=== PATIENT | female | born 1970 | race Caucasian/White ===

== ENCOUNTER 2019-10-11 09:03 | Emergency (ER) | payer MEDICARE, OTHER ==
[~2019-10-11] VITALS: Ht 121.9 cm; Wt 108.9 kg
[~2019-10-11 09:03] MED LIST: ALPR1TAB2 PO; AMIT10TA PO; AMLO1TAB PO; ASPI-655 PO; BENZ-14 PO; BUPR100T6 PO; CANA100T PO; CITA40TA12 PO; CITA40TA5 PO; CLON0.1T PO; CLOP75TA52 PO; CYCL5TAB10 PO; DOCU-123 PO; DULO60CA7 PO; GABA800T5 PO; HYDR-3101 PO; HYDR-3105 PO; INSU100I19 SQ; INSU100I31 SQ; INSU100V13 SQ; LEVO175T5 PO; LEVO750T25 PO; LEVO75TA6 PO; LIRA0.6P2 SQ; LUBI8CAP4 PO; MELO15TA6 PO; OLME1TAB25 PO; PREG75CA PO; ROPI5TAB PO; SULF1TAB24 PO; TRAZADONE PO
[2019-10-11 09:09] VITALS: BP 120/67
[2019-10-11 09:21] VITALS: BP 120/67
--- NOTE | 2019-10-11 09:25 | NUR ---
RAD PT TO RADIOLOGY VIA STRETCHER.
--- NOTE | 2019-10-11 09:58 | ER.PDOC ---
General Chief Complaint: Extremities Stated Complaint: FALL Time seen by MD: 09:05 Source: patient Exam Limitations: no limitations History of Present Illness Initial Comments Pt fell forward out of motorized wheelchair when it hit an obstruction in the house and stopped suddenly. C/o R arm and neck pain Occurred: just prior to arrival Where: home Severity: moderate Injuries/Pain Location: neck, upper extremity Context: Other Loss of Consciousness: No Loss of Consciousness Modifying Factors: improves with immobilization; worse with jarring, worse with movement; improves with pain medication Associated Symptoms: denies symptoms Allergies: Coded Allergies: cefazolin (Verified Allergy, Severe, Anaphylaxis Shock, 07/04/18) cefazolin sodium (Verified Allergy, Severe, LUNGS COLLAPSED AND HEART STOPPED, 12/21/16) MEDS Active Scripts Levofloxacin (LEVAQUIN) 750 Mg Tablet, 500 MG PO DAILY for 5 Days Prov:ARYA SALTER MD 01/02/17 Reported Medications Docusate Sodium (COLACE) 100 Mg Capsule, 1 CAP PO BID, #30 CAP 12/29/16 Lubiprostone (AMITIZA) 8 Mcg Capsule, 1 CAP PO BID, #60 CAP 5 Refills 12/29/16 Clopidogrel Bisulfate (PLAVIX) 75 Mg Tablet, 1 TAB PO DAILY, #30 TAB 4 Refills 12/27/16 Aspirin (ASPIRIN EC) 81 Mg Tablet.dr, 1 TAB PO DAILY, #30 TAB 4 Refills 12/27/16 Meloxicam (MOBIC) 15 Mg Tablet, 1 TAB PO DAILY, #30 TAB 1 Refill 12/21/16 Levothyroxine Sodium (LEVOTHYROXINE SODIUM) 175 Mcg Tablet, 1 TAB PO DAILY, #30 TAB 5 Refills 12/21/16 Hydrocodone Bit/Acetaminophen (NORCO 10-325) 1 Each Tablet, 1 TAB PO QID, #120 TAB 12/21/16 Duloxetine Hcl (CYMBALTA) 60 Mg Capsule.dr, 1 CAP PO DAILY, #90 CAP 3 Refills 12/21/16 Pregabalin (LYRICA) 75 Mg Capsule, 1 CAP PO BID, #60 CAP 1 Refill 12/21/16 Canagliflozin (Invokana) 100 Mg Tablet, 100 MG PO DAILY, TABLET 12/21/16 Insulin Degludec (Tresiba Flextouch U-100) 100 Unit/Ml (3 Ml) Insuln.pen, 44 UNIT SQ HS 12/21/16 Liraglutide (VICTOZA 3-JORDON) 0.6 Mg/0.1 Ml Pen.injctr, 1.2 MG SQ DAILY 12/21/16 Ropinirole Hcl (REQUIP) 5 Mg Tablet, 20 MG PO HS 05/08/13 Cyclobenzaprine Hcl (FLEXERIL) 5 Mg Tablet, 10 MG PO TID 05/08/13 Alprazolam (XANAX) 1 Mg Tablet, 1 MG PO TID 05/08/13 Olmesartan/Hydrochlorothiazide (BENICAR HCT 40-25 MG TABLET) 1 Each Tablet, 1 EACH PO DAILY 05/08/13 Past Medical History Medical History: cancer, diabetes, hypertension, thyroid disease Surgical History: cholecystectomy, , gastric bypass Social History Alcohol Use: none Drug Use: none Review of Systems Constitutional: no symptoms reported Eyes: no symptoms reported Ears, Nose, Mouth, Throat: no symptoms reported Respiratory: no symptoms reported Cardiovascular: no symptoms reported Gastrointestinal: no symptoms reported Genitourinary: no symptoms reported Musculoskeletal: see HPI, other (RUE, neck pain) Skin: no symptoms reported Psychiatric/Neurological: no symptoms reported Physical Exam General Appearance: WD/WN, Moderate Distress Head: Other (Small abrasion R forehead) Eyes: bilateral eye normal inspection Ears, Nose, Mouth, Throat: Hearing Grossly Normal, No Evidence of ENT Injury, No Dental Injury Neck: Normal Alignment, Distracting Injury, Paraspinous Muscle Tender (R) Cardiovascular/Respiratory: Regular Rate, Rhythm, No M/R/G, Normal Peripheral Pulses, No JVD, Normal Breath Sounds, No Respiratory Distress Gastrointestinal: Normal Bowel Sounds, No Organomegaly, No Pulsatile Mass, Non Tender, Soft Genital/Rectal: Normal Genital Exam Back: Normal Inspection, No CVA Tenderness, No Vertebral Tenderness Extremities: No Pedal Edema, Bony-Point Tenderness (Prox R humerus), Pain With Movement, Tenderness Neurologic/Psychiatric: prefitter doors II-XII NML as Tested, No Motor/Sensory Deficits, Alert, Normal Mood/Affect, Oriented x 3 Skin: Normal Color, Warm/Dry Cheryl Coma Score Best Eye Response: (4) Open Spontaneously Best Verbal Response: (5) Oriented Best Motor Response: (6) Obeys Commands Results/Orders Results/Orders Orders - JOHANNA EPREZ MD Xr Humerus Rt (10/11/19 09:10) Xr Cspine 2-3v (10/11/19 09:10) Vital Signs Date Time Temp Pulse Resp B/P (MAP) Pulse Ox O2 Delivery O2 Flow Rate FiO2 10/11/19 09:21 97.8 82 10 120/67 (84) 92 Nasal Canula 10/11/19 09:21 97.8 82 10 120/67 (84) 92 Nasal Canula 2.00 10/11/19 09:09 97.8 82 12 92 10/11/19 09:09 97.8 82 10 Departure Time of Disposition: 10:12 Disposition: 01 HOME, SELF-CARE Impression: Primary Impression: Fracture, humerus, great tuberosity Condition: Stable Referrals: PCP,UNKNOWN (PCP) PRIMARY CARE PROVIDER Additional Instructions: Take hydrocodone as prescribed. Wear sling for comfort. Refer Dr. Estrella. Duration or Time Spent with Pa: 15 Problem Qualifiers Primary Impression: Fracture, humerus, great tuberosity Encounter type: initial encounter Fracture type: closed Fracture alignment: nondisplaced Laterality: right Qualified Codes: S42.254A - Nondisplaced fracture of greater tuberosity of right humerus, initial encounter for closed fracture JOHANNA PEREZ MD Oct 11, 2019 09:58
--- NOTE | 2019-10-11 10:00 | DIREP ---
PROCEDURE:XR SPINE CERVICAL 2 OR 3 VIEWS COMPARISON:[facility], CR, XRAY HUMERUS MIN 2 VWS-RT, 10/11/2019, 09:18 AM. INDICATIONS:Fall from wheelchair, neck pain TECHNIQUE:AP, lateral, swimmer's, and dens views of the cervical spine are provided. FINDINGS: ALIGNMENT:The cervical spine is visualized through the C6-7 level on the lateral and swimmer's views. The cervicothoracic junction is obscured by the patient's shoulders. No subluxation at the visualized cervical levels. VERTEBRAE:No fracture or compression abnormality of the visualized cervical levels. Small ventral osteophytes at C4-5 and C5-6. DISK SPACES:Mild disc space narrowing at C4-5 and C5-6. CERVICAL RIBS:None. OTHER:No prevertebral soft tissue swelling. CONCLUSION: 1. No acute abnormality of the visualized cervical levels. The cervicothoracic junction is not well visualized. If there is clinical suspicion for injury at the cervicothoracic junction, noncontrast CT of the cervical spine could be performed. 2. Mild spondylosis at C4-5 and C5-6. Dictated by: Jasbir Cates MD on 10/11/2019 at 09:56 AM
--- NOTE | 2019-10-11 10:02 | DIREP ---
PROCEDURE:XRAY HUMERUS MIN 2 VWS-RT COMPARISON:[facility], , XRAY SPINE CERVICAL 2-3VW, 10/11/2019, 09:18 AM. INDICATIONS:Fall from wheelchair, R prox humerus pain FINDINGS: BONES:Nondisplaced vertical fracture through the greater tuberosity of the right proximal humerus. No additional fracture. JOINTS:No dislocation. Moderate acromioclavicular arthrosis. Mild glenohumeral arthrosis. SOFT TISSUES:Normal. OTHER:Visualized portions of the right lung are clear, given low lung volumes. CONCLUSION: 1. Acute, nondisplaced, vertical fracture through the greater tuberosity of the right proximal humerus. No additional fracture. 2. Moderate acromioclavicular arthrosis and mild glenohumeral arthrosis. Dictated by: Jasbir Cates MD on 10/11/2019 at 09:59 AM
[2019-10-11] MEDS ORDERED: NORCO 10MG PO STA (10:10)
[2019-10-11] MEDS ORDERED: NORCO 10MG PO ONE (10:14)
[2019-10-11 10:25] VITALS: BP 104/63
== END 2019-10-11 10:25 | disposition home or self-care (01) ==
LOC: ER 09:03 → EDBD 09:03 → ER 10:25
DX: S42.254A Nondisplaced fracture of greater tuberosity of right humerus, initial encounter for closed fracture (principal); S00.81XA Abrasion of other part of head, initial encounter; I10 Essential (primary) hypertension; E11.9 Type 2 diabetes mellitus without complications; E07.9 Disorder of thyroid, unspecified; Z79.1 Long term (current) use of non-steroidal anti-inflammatories (NSAID); Z79.4 Long term (current) use of insulin; Z79.82 Long term (current) use of aspirin; Z79.899 Other long term (current) drug therapy; Z88.1 Allergy status to other antibiotic agents; Z90.49 Acquired absence of other specified parts of digestive tract; Z98.84 Bariatric surgery status; V27.4XXA Motorcycle driver injured in collision with fixed or stationary object in traffic accident, initial encounter; Y93.89 Activity, other specified; Y92.098 Other place in other non-institutional residence as the place of occurrence of the external cause; Y99.8 Other external cause status
CPT/HCPCS: 72040; 99284; 73060-RT

== ENCOUNTER → 2020-03-10 | Outpatient (CLI) | payer MEDICARE, OTHER ==
[~2020-03-10] MED LIST changes: -ASPI-655 PO; +ASPI-929 PO
== END | disposition home or self-care (01) ==
LOC: NPLAB 14:03
PROVIDERS: ATTEND Internal Medicine
DX: E11.40 Type 2 diabetes mellitus with diabetic neuropathy, unspecified (principal); T87.44 Infection of amputation stump, left lower extremity
CPT/HCPCS: 87070; 87075; 87077; 87186

== ENCOUNTER 2020-03-19 16:48 | Emergency (ER) | payer OTHER, MEDICARE ==
[~2020-03-19] VITALS: Ht 132.1 cm; Wt 108.9 kg
--- NOTE | 2020-03-19 17:07 | NUR ---
ARRIVAL PT ARRIVED TO ED WITH C/O NEEDING WOUND VAC CHANGED. PT REPORTS SHE WAS SUPPOSED TO BE SEEN BY HOME HEALTH TODAY AFTER BEING DISCHARGED FROM [facility] AFTER A STUMP REVISION. HOME HEALTH DENIED COMING D/T IT BEING WORKMANS COMP CASE. BEDSIDE MONITORS APPLIEDL VITAL SIGNS STABLE. PT SITTING IN WHEELCHAIR.
[2020-03-19 17:24] VITALS: BP 117/62
[2020-03-19] MEDS ORDERED: DILAUDID ONE (17:33)
[2020-03-19] MEDS: DILAUDID IV STA (17:41)
--- NOTE | 2020-03-19 17:43 | ER.PDOC ---
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 She came in for wound dressing. She is also having phantom pain. Severity: moderate Associated Symptoms: denies symptoms Allergies: Coded Allergies: cefazolin (Verified Allergy, Severe, Anaphylaxis Shock, 07/04/18) cefazolin sodium (Verified Allergy, Severe, LUNGS COLLAPSED AND HEART STOPPED, 12/21/16) Home Meds Active Scripts Levofloxacin (LEVAQUIN) 750 Mg Tablet, 500 MG PO DAILY for 5 Days Prov:ARYA SALTER MD 01/02/17 Reported Medications Docusate Sodium (COLACE) 100 Mg Capsule, 1 CAP PO BID, #30 CAP 12/29/16 Lubiprostone (AMITIZA) 8 Mcg Capsule, 1 CAP PO BID, #60 CAP 5 Refills 12/29/16 Clopidogrel Bisulfate (PLAVIX) 75 Mg Tablet, 1 TAB PO DAILY, #30 TAB 4 Refills 12/27/16 Aspirin (ASPIRIN EC) 81 Mg Tablet.dr, 1 TAB PO DAILY, #30 TAB 4 Refills 12/27/16 Meloxicam (MOBIC) 15 Mg Tablet, 1 TAB PO DAILY, #30 TAB 1 Refill 12/21/16 Levothyroxine Sodium (LEVOTHYROXINE SODIUM) 175 Mcg Tablet, 1 TAB PO DAILY, #30 TAB 5 Refills 12/21/16 Hydrocodone Bit/Acetaminophen (NORCO 10-325) 1 Each Tablet, 1 TAB PO QID, #120 TAB 12/21/16 Duloxetine Hcl (CYMBALTA) 60 Mg Capsule.dr, 1 CAP PO DAILY, #90 CAP 3 Refills 12/21/16 Pregabalin (LYRICA) 75 Mg Capsule, 1 CAP PO BID, #60 CAP 1 Refill 12/21/16 Canagliflozin (Invokana) 100 Mg Tablet, 100 MG PO DAILY, TABLET 12/21/16 Insulin Degludec (Tresiba Flextouch U-100) 100 Unit/Ml (3 Ml) Insuln.pen, 44 UNIT SQ HS 12/21/16 Liraglutide (VICTOZA 3-JORDON) 0.6 Mg/0.1 Ml Pen.injctr, 1.2 MG SQ DAILY 12/21/16 Ropinirole Hcl (REQUIP) 5 Mg Tablet, 20 MG PO HS 05/08/13 Cyclobenzaprine Hcl (FLEXERIL) 5 Mg Tablet, 10 MG PO TID 05/08/13 Alprazolam (XANAX) 1 Mg Tablet, 1 MG PO TID 05/08/13 Olmesartan/Hydrochlorothiazide (BENICAR HCT 40-25 MG TABLET) 1 Each Tablet, 1 EACH PO DAILY 05/08/13 Past Medical History Medical History: hypertension, other Surgical History: cholecystectomy, other Social History Alcohol Use: none Drug Use: none Review of Systems Constitutional: no symptoms reported EENTM: no symptoms reported Respiratory: no symptoms reported Cardiovascular: no symptoms reported Gastrointestinal: no symptoms reported Musculoskeletal: see HPI Skin: see HPI All Other Systems: Reviewed and Negative Physical Exam General Appearance: No Apparent Distress, WD/WN, Obese Neck: Non-Tender, Full Range of Motion, Supple, Normal Inspection Respiratory: chest non-tender, lungs clear, normal breath sounds, no respiratory distress, no accessory muscle use CVS: reg rate & rhythm, no murmur, no gallop, pulses nml, nml capillary refill Gastrointestinal: Normal Bowel Sounds, No Organomegaly, No Pulsatile Mass, Non Tender Back: Normal Inspection Extremities: Other (left AKA with a wound vac aatached to the stump.) Neurologic/Psychiatric: wirer helper II-XII NML as Tested, No Motor/Sensory Deficits, Alert, Normal Mood/Affect Skin: Normal Color, Other (No sorrounding redness or erytherma of the wound.) Results/Orders Results/Orders Orders - SURESH BELCHER MD Hydromorphone Hcl (Dilaudid) (03/19/20 17:35) Hydromorphone Hcl (Dilaudid) (03/19/20 17:33) Vital Signs Date Time Temp Pulse Resp B/P (MAP) Pulse Ox O2 Delivery O2 Flow Rate FiO2 03/19/20 17:24 99.6 112 18 03/19/20 17:24 99.6 112 18 117/62 (80) 98 Room Air 03/19/20 17:24 99.6 112 18 98 Administered Medications Medications (Trade) Dose Ordered Sig/Lit Route PRN Reason Start Time Stop Time Status Last Admin Dose Admin Hydromorphone HCl (Dilaudid) 2 mg STAT STAT IV 03/19/20 17:35 03/19/20 17:36 DC 03/19/20 17:41 2 MG Progress Progress Wound vac changed in the ED by hot dip plating supervisor. Departure Time of Disposition: 19:21 Disposition: 01 HOME, SELF-CARE Impression: Primary Impression: Encounter for management of wound VAC Additional Impression: Phantom limb pain Condition: Stable Referrals: PCP,UNKNOWN (PCP) PRIMARY CARE PROVIDER Additional Instructions: F/U with your Surgeon as needed F/U with home health to continue wound Vac management. Return to ED if any concerns Duration or Time Spent with Pa: 30 min Problem Qualifiers SURESH BELCHER MD Mar 19, 2020 17:43
--- NOTE | 2020-03-19 18:55 | NUR ---
WOUND VAC ASSESSMENT/DRESSING CHANGE WOUND VAC DRESSING REMOVED. ATTEMPTED TO REMOVE BLACK FOAM, FOAM HAS BEEN STAPLED AND SUTURED IN PLACE, PATIENT STATES THAT HER SURGEON PLACED IT IN THE OR. EXPLAINED THAT I CANNOT REMOVE FOAM DUE TO THE EMIL AND SUTURES IN PLACE, WITH NO CLEAR ORDERS FOR REMOVAL, WOUND CLEANSED BEST POSSIBLE, CLEAN DRESSING, TUBING, CANISTER PLACED. PATIENT AND PATIENT CAREGIVER VERBALIZE UNDERSTANDING OF HOME HEALTH CARE/WOUND CARE SUNDAY, EXPLAINED THAT IF SHE IS NOT ABLE TO GET IN WITH HOME HEALTH SUNDAY SHE NEEDS TO RETURN TO ER NO LATER THAN NOON SO WE CAN GET INTO TOUCH WITH HER SURGEON FOR MORE DETAILED INSTRUCTIONS FOR WOUND CARE, DISCHARGE HOME INSTRUCTIONS.
== END 2020-03-19 19:20 | disposition home or self-care (01) ==
LOC: ER 16:48
DX: G54.6 Phantom limb syndrome with pain (principal); I10 Essential (primary) hypertension; Z48.00 Encounter for change or removal of nonsurgical wound dressing; Z79.1 Long term (current) use of non-steroidal anti-inflammatories (NSAID); Z79.4 Long term (current) use of insulin; Z79.82 Long term (current) use of aspirin; Z79.84 Long term (current) use of oral hypoglycemic drugs; Z79.899 Other long term (current) drug therapy; Z88.1 Allergy status to other antibiotic agents; Z90.49 Acquired absence of other specified parts of digestive tract
CPT/HCPCS: 96374; 99283; J1170

== ENCOUNTER → 2020-04-26 | Outpatient (CLI) | payer MEDICARE, OTHER ==
[2020-04-26 15:14] LABS: BASOPHIL # 0.1 10^3/uL (0.0-0.1); BASOPHIL % 0.9 % (0.0-0.2); EOSINOPHIL # 0.2 10^3/uL (0.0-0.2); EOSINOPHIL % 3.3 % (0.0-5.0); LYMPHOCYTES # 1.32 10^3/uL1 (1.0-4.8); MEAN CORP HGB 26.3 pg (26-34); MONOCYTES # 0.5 10^3/uL (0.3-0.8); MONOCYTES % 8.6 % (5.0-12.0); NEUTROPHIL # 3.5 10^3/uL (1.8-7.7); PLATELET COUNT 222 10^3/uL (150-400); RED CELL DISTRIBUTION WIDTH 18.8 % (11.5-14.5)
[2020-04-26 15:29] LABS: CALCIUM 7.7 mg/dL (8.4-10.5); CARBON DIOXIDE 32.6 mmol/L (20.0-32)
== END | disposition home or self-care (01) ==
LOC: NPLAB 11:50
PROVIDERS: ATTEND Orthopaedic Surgery
DX: T81.42XA Infection following a procedure, deep incisional surgical site, initial encounter (principal); I10 Essential (primary) hypertension; B95.61 Methicillin susceptible Staphylococcus aureus infection as the cause of diseases classified elsewhere; Z89.612 Acquired absence of left leg above knee
CPT/HCPCS: 80053; 82550; 85025; 85651; 86140

== ENCOUNTER → 2020-09-21 | Outpatient (CLI) | payer MEDICARE, OTHER ==
[2020-09-21 17:46] LABS: CALCIUM 7.6 mg/dL (8.4-10.5); CARBON DIOXIDE 26.1 mmol/L (20.0-32)
== END | disposition home or self-care (01) ==
LOC: LAB 17:08
PROVIDERS: ATTEND Internal Medicine
DX: R40.0 Somnolence (principal); I10 Essential (primary) hypertension; Z79.899 Other long term (current) drug therapy
CPT/HCPCS: 36415; 80053; 80307; 80346

== ENCOUNTER → 2021-01-19 | Outpatient (CLI) | payer MEDICARE, MEDICAID ==
[2021-01-19 14:36] LABS: BILIRUBIN,URINE NEGATIVE (NEGATIVE); UA COLOR YELLOW
[2021-01-19 14:37] LABS: UROBILINOGEN,URINE 0.2 E.U./dL (0.2)
== END | disposition home or self-care (01) ==
LOC: NPLAB 14:16
PROVIDERS: ATTEND Internal Medicine
DX: R30.0 Dysuria (principal)
CPT/HCPCS: 81001; 87086

== ENCOUNTER → 2021-09-05 | Outpatient (CLI) | payer MEDICARE, OTHER ==
[~2021-09-05] MED LIST changes: -CITA40TA5 PO; +CITA40TA6 PO; -DULO60CA7 PO; +DULO60CA8 PO
--- NOTE | 2021-09-06 11:48 | DIREP ---
PROCEDURE:BONE DENSITY PERIPHERAL INDICATIONS:OSTEOPOROSIS COMPARISON:None. FINDINGS: Femur Proximal RIGHT femur bone mineral density (BMD) (g/cm2): 0.417 T-score : -4.7 Proximal LEFT femur bone mineral density (BMD) (g/cm2): 0.331T-score: The 5.4 Lumbar Lumbar bone mineral density (BMD) (g/cm2): 1.047T-score : -1.2 Imaging- No significant findings CONCLUSION: 1. Osteoporosis of the bilateral hips. Osteopenia of the lumbar spine 2. Based on the [place] FRAX study, the patient's 10-year probability of a major osteoporotic fracture (clinical spine, forearm, hip or shoulder) is 64.8 %, and the 10-year probability of a hip fracture is 58.9 %. SUGGESTED RECOMMENDATIONS: Normal & Osteopenia:Consideration should be given to use of calcium supplementation, daily multiple vitamins and adequate exercise, as preventive measures against osteoporosis, if clinically indicated. Osteoporosis & Severe Osteoporosis:In addition to the above, consideration should be given to medical therapy against osteoporosis, if clinically indicated. Dictated by: Ivone Bruner M.D. on 09/06/2021 at 10:45 AM Read in [place]
== END | disposition home or self-care (01) ==
LOC: BD 14:41
PROVIDERS: ATTEND Internal Medicine
DX: M81.8 Other osteoporosis without current pathological fracture (principal); M85.88 Other specified disorders of bone density and structure, other site; Z13.820 Encounter for screening for osteoporosis
CPT/HCPCS: 77080

== ENCOUNTER → 2022-05-09 | Outpatient (CLI) | payer MEDICARE, MEDICAID ==
[~2022-05-09] MED LIST changes: -AMLO1TAB PO; +LEXISCAN IV ONE; +OLME-36 PO; -OLME1TAB25 PO; +[UNRECOGNIZED DRUG - CODE] PO
--- NOTE | 2022-05-10 00:13 | PCM.ECHO ---
APPROVED REPORT EXAM: Comprehensive 2D, Doppler, and color-flow Echocardiogram. Patient Location: OUT-PATIENT Indications Dizziness and Vertigo Hypertension/HDD Chest Pain Palpitations 2D Dimensions LVOT Diameter 2.20 (1.8-2.4cm) LVEF(%) 54.80 (>50%) M-Mode Dimensions RVDd 0.50 (2.1-3.2cm) Left Atrium(MM) 3.85 (2.5-4.0cm) IVSd 0.85 (0.7-1.1cm) Aortic Root 3.50 (2.2-3.7cm) LVDd 8.65 (4.0-5.6cm) Aortic Cusp Exc 2.00 (1.5-2.0cm) PWd 0.80 (0.7-1.1cm) MV EPSS 0.39 (<0.5cm) IVSs 1.25 cm FS (%) 20.85 % LVDs 6.80 (2.0-3.8cm) ESV(Teich) 243.06 ml PWs 1.40 cm LVEF(%) 40.75 (>50%) Volumes Biplane 2D LV Volumes Biplane 2D LA Volumes LVEDv A4C 155.28 mL LA ESV Index LVESv A4C 70.18 mL Aortic Valve AoV Peak Rafy. 1.35 m/s AoV VTI 27.05 cm AO Peak GR. 7.30 mmHg AO Mean GR. 3.95 mmHg LVOT VTI 14.02 cm LVOT Peak Rafy. 0.57 m/s MARQUEZ(VTI)/BSA 1.97 cm2/m2 MARQUEZ (VTI) 1.97 cm2 Mitral Valve MV E Velocity 0.80m/s MR Peak Gr. 19.70mmHg MV A Velocity 1.05m/s TDI Lateral E' P. V 0.06m/s Medial E' P. V 0.06m/s Pulmonary Valve PV Peak Velocity 0.55m/s PV Peak Grad. 1.30mmHg RVOT VTI 14.40cm Tricuspid Valve TR P. Velocity 1.55m/s RAP ESTIMATE 10.00mmHg TR Peak Gr. 9.68mmHg RVSP 19.68mmHg LEFT VENTRICLE The left ventricle is normal size. Left ventricular systolic function is mildly decreased. There is normal left ventricular wall thickness. Regional wall motion abnormalities are noted. Severe diastolic dysfunction is present (restrictive filling). There is no ventricular septal defect visualized. No left ventricle thrombus noted on this study. LVEF is 45%. RIGHT VENTRICLE The right ventricle is normal size. Right ventricular systolic function is mildly reduced. There is normal right ventricular wall thickness. ATRIA The left atrium size is normal. The right atrium size is normal. The interatrial septum is intact with no evidence for an atrial septal defect. AORTIC VALVE The aortic valve is normal in structure. There is no aortic valvular stenosis. No aortic regurgitation is present. There is no aortic valvular vegetation. MITRAL VALVE The mitral valve is normal in structure. There is no mitral valve stenosis. Mild mitral regurgitation. There is no evidence of mitral valve vegetations. TRICUSPID VALVE The tricuspid valve is normal in structure. There is no tricuspid valve stenosis. Mild tricuspid regurgitation. There is no tricuspid valve vegetations. PULMONIC VALVE Pulmonic valve is not well visualized. There is no pulmonic valvular stenosis. Mild pulmonic regurgitation. GREAT VESSELS The aortic root is normal in size. Pulmonary artery is not well visualized. Aortic arch is not well visualized. IVC is not well visualized. PERICARDIUM There is no pericardial effusion. Other Information Study Quality: Fair <Conclusion> Left ventricular systolic function is mildly decreased. LVEF is 45%. Regional wall motion abnormalities are noted. Severe diastolic dysfunction is present (restrictive filling). Mild mitral regurgitation. Mild tricuspid regurgitation. Mild pulmonic regurgitation. Electronically signed by : ANN-MARIE YEH. 05/10/2022 00:13:06
--- NOTE | 2022-05-10 01:45 | STRESS ---
DATE OF SERVICE: 05/09/2022 DICTATOR NAME: ANN-MARIE YEH CARDIAC STRESS TEST INDICATION: Chest pain. FINDINGS: Baseline EKG shows normal sinus rhythm with poor R-wave progression, likely normal variant. Stress EKG shows normal sinus rhythm, unchanged from baseline. At the end of recovery, EKG shows normal sinus rhythm, unchanged from baseline. Baseline heart rate is 72 beats per minute and davin to 77 beats per minute during stress. At the end of recovery, the heart rate was 82 beats per minute. Baseline blood pressure is 189/98 and remained the same during stress. At the end of recovery, the blood pressure was 183/91. Blood pressure and heart rate were appropriate for stress. There were no significant symptoms noted during stress. There were no arrhythmias noted during stress. EKG portion of stress test is negative for myocardial ischemia. Nuclear images were obtained with a rest dose of 9.7 mCi technetium-99 sestamibi, and a stress dose of 30 mCi technetium-99 sestamibi. Nuclear images reveal a large area of reversible perfusion defect involving the inferior wall suggestive of myocardial ischemia. There is also a moderate-sized area of reversible perfusion defect involving the apical wall, suggestive of myocardial ischemia. There is no evidence of myocardial infarction. Left ventricular ejection fraction is 46%. EDV is 132 mL, ESV 72 mL. The left ventricle is mildly dilated. Gated motion images shows global hypokinesis of the left ventricle. TID is 1.3. There is no evidence of diaphragmatic attenuation artifact. IMPRESSION: * There is a large area of reversible perfusion defect involving the inferior wall, suggestive of myocardial ischemia. * There is a moderate-sized area of reversible perfusion defect involving the apical wall, also suggestive of myocardial ischemia. * There is no evidence of myocardial infarction. * The left ventricle is mildly dilated. * Global hypokinesis of the left ventricle is noted. * The left ventricular ejection fraction is 46%. * This is an abnormal study. Recommend left heart catheterization. Edith JOHNSON D.O. DR: CHINYERE TID: [id number] RECEIPT: [id number]
== END | disposition home or self-care (01) ==
LOC: RAD 07:52
PROVIDERS: ATTEND Internal Medicine Interventional Cardiology
DX: I08.8 Other rheumatic multiple valve diseases (principal); R07.9 Chest pain, unspecified; R00.2 Palpitations; I10 Essential (primary) hypertension; R42 Dizziness and giddiness
CPT/HCPCS: 78452; 93306; 93017; J2785; A9500

== ENCOUNTER 2022-05-25 09:55 | Observation (INO) | payer MEDICARE, MEDICAID ==
[2022-05-23 13:31] VITALS: BP 160/94
[2022-05-23 14:35] LABS: BASOPHIL % 0.6 % (0.0-0.2); EOSINOPHIL # 0.1 10^3/uL (0.0-0.2); EOSINOPHIL % 1.3 % (0.0-5.0); LYMPHOCYTES # 1.56 10^3/uL1 (1.0-4.8); LYMPHOCYTES % 22.6 % (24.0-44.0); MEAN CORP HGB 30.3 pg (26-34); MONOCYTES # 0.5 10^3/uL (0.3-0.8); MONOCYTES % 7.2 % (5.0-12.0); NEUTROPHIL # 4.7 10^3/uL (1.8-7.7); PLATELET COUNT 186 10^3/uL (150-400); RED CELL DISTRIBUTION WIDTH 13.3 % (11.5-14.5)
--- NOTE | 2022-05-23 14:35 | PCM.EKG ---
[facility] Test Date: 2022-05-23 Test Time: 15:27:55 Pat Name: MARIELA OHARA Department: Room: Gender: F Sales Order Coordinator: : 1970 Requested By: ANN-MARIE YEH Order Number: [id number] Reading MD: Measurements Intervals [place] Rate: 75 P: 0 OH: 206 QRS: -18 QRSD: 113 T: 15 QT: 410 QTc: 458 Interpretive Statements Sinus rhythm Borderline prolonged OH interval Abnormal R-wave progression, late transition Probable left ventricular hypertrophy Compared to ECG 07/13/2017 10:23:00 Prolonged QT interval no longer present Please click the below link to view image of tracing.
[2022-05-23 14:52] LABS: CARBON DIOXIDE 29.7 mmol/L (20.0-32)
[~2022-05-25] VITALS: Ht 162.6 cm; Wt 135.2 kg
[~2022-05-25 09:55] MED LIST changes: +CLOP-28 PO; -CLOP75TA52 PO; -LEXISCAN IV ONE; +NS 1000ML 1,000 ML IV SCH
[2022-05-25 10:10] VITALS: BP 174/96
[2022-05-25 10:18] VITALS: BP 170/87
[2022-05-25 10:22] VITALS: BP 128/78
[2022-05-25] MEDS ORDERED: METO25TA4 PO (10:39)
[2022-05-25] MEDS ORDERED: GABA300C PO (10:39)
[2022-05-25] MEDS ORDERED: XYLOCAINE 2% 5ML VIAL ONE (12:48)
[2022-05-25] MEDS ORDERED: SUBLIMAZE ONE (12:49)
[2022-05-25] MEDS ORDERED: VERSED ONE (12:49)
[2022-05-25] MEDS ORDERED: ATIVAN ONE (13:06)
[2022-05-25] MEDS ORDERED: APRESOLINE ONE ×2 (13:33→14:09)
[2022-05-25] MEDS ORDERED: HEPARIN ONE (13:51)
[2022-05-25] MEDS ORDERED: MORPHINE SULFATE ONE (13:57)
[2022-05-25] MEDS ORDERED: PLAVIX ONE (14:09)
[2022-05-25] MEDS ORDERED: ASPIRIN ONE (14:10)
[2022-05-25 14:45] VITALS: BP 155/78
--- NOTE | 2022-05-25 15:00 | NUR ---
admit to rm [id number] POST HEART CATH, TO RM 313 VIA BED. TELE APPLIED, O2 AT 2 L PER NC ON. REC REPORT AND ASSUMED CARE OF PT. SITE SOFT, NO ACTIVE BLEEDING. SEE SPECIAL VS SHEET AND HEART CATH SITE INTERVENTION
[2022-05-25 15:35] VITALS: BP 155/78
--- NOTE | 2022-05-25 16:00 | NUR ---
[facility] CATH UNABLE TO VOID ON BEDPAN, PT REPORTS HISTORY OF NOT BEING ABLE TO VOID AND WAS SUPPOSED TO HAVE CYSTOSCOPY BUT HEART CATH TOOK PRIORITY. 16 [place] [facility] CATH INSERTED USING STERILE TECHNIQUE. CLOUDY URINE IN BAG 1300ML.
--- NOTE | 2022-05-25 18:17 | CCRH ---
DATE OF SERVICE: 05/25/2022 DICTATOR NAME: ANN-MARIE YEH DO CARDIAC INDICATIONS: Abnormal cardiac ischemic workup. This is a 51-year-old female, who was evaluated in the outpatient setting, where she underwent cardiac ischemic workup that was noted to be abnormal. She was then set up for left heart catheterization after informed consents were obtained. PROCEDURES PERFORMED: * Severe stenosis (80%) of the right posterolateral artery, status post successful percutaneous coronary intervention with an Senath Cross 2.25 x 34 mm drug-eluting stent. * Severe stenosis (90%) of the ostial right posterior descending artery, status post successful percutaneous coronary intervention with an Senath Cross 2.25 x 15 mm drug-eluting stent. * Selective coronary angiography. * Left ventriculography. * Hemostasis established using a 6-Tanzanian MynxGrip. DESCRIPTION OF PROCEDURE: Access was obtained using a 4-Tanzanian micropuncture sheath to cannulate the right common femoral artery. The 4-Tanzanian sheath was then upsized to a 6-Tanzanian regular short sheath. Diagnostic angiography was then carried out using a Shaun left catheter to engage the left main artery. The left main artery was noted to be angiographically normal. It bifurcates into a left anterior descending artery and a left circumflex artery. The left anterior descending artery is noted to have mild luminal irregularities. It runs in the interventricular groove reaching the apex to form a type 2 LAD. It tapers into a very small caliber vessel distally. It gives rise to 3 diagonal branches that are all noted to have mild luminal irregularities. The left circumflex artery is noted to be codominant and with mild luminal irregularities. It gives rise to 2 obtuse marginal branches. The first obtuse marginal branch is noted to have mild luminal irregularities. The second obtuse marginal branch has a 40-50% ostial to proximal lesion and a 50% mid vessel lesion. It continues as the left posterolateral branch supplying the posterolateral wall. The Shaun left catheter was then exchanged for a Shaun right catheter, which was used to engage the RCA. RCA angiography revealed a dominant RCA with mild luminal irregularities. The RCA bifurcates into a right posterior descending artery and a right posterolateral artery. The right posterior descending artery is noted to have an ostial 90% lesion. The right posterolateral artery has an 80% mid vessel long lesion. The Shaun right catheter was then exchanged for a pigtail catheter, which was used to cross the aortic valve into the left ventricle. Left ventriculography was performed. LVEF was noted to be 45%. Mild inferior wall hypokinesis was noted. LVEDP was noted to be 13. Upon pullback of the pigtail catheter, there was no gradient across the aortic valve. I then elected to intervene in the right posterior descending artery as well as the right posterolateral artery. Using a Shaun right guide catheter, the RCA was successfully engaged. A Runthrough wire was then introduced into the RCA first crossing the lesion in the right posterolateral artery. The lesion was then treated by primary stenting using an Eulalio Cross 2.25 x 34 mm drug-eluting stent. The stent was then postdilated using a 2.5 x 15 mm noncompliant balloon. Following post-dilation, the stent was noted to be well apposed to the wall of the vessel with 0% residual stenosis. JOSE 3 flow was maintained in the right posterolateral artery. I then turned my attention to the right posterior descending artery. The Runthrough wire was pulled back from the RPLA and reintroduced into the RPDA. The ostial to proximal lesion of the right posterior descending artery was then treated by primary stenting using an Eulalio Cross 2.25 x 15 mm drug-eluting stent. The stent was noted to be well apposed to the wall of the vessel with 0% residual stenosis. JOSE 3 flow was also maintained in the right posterior descending artery. The wire and the guide catheter was then taken out and hemostasis was established using a 6-Tanzanian MynxGrip. The patient left the [employer] in stable condition. There were no complications. IMPRESSION: * Severe stenosis of the right posterolateral artery, status post successful percutaneous coronary intervention with a drug-eluting stent. * Severe stenosis of the right posterior descending artery, status post successful percutaneous coronary intervention with a drug-eluting stent. * Selective coronary angiography. * Left ventriculography. * Left ventricular ejection fraction of 45%. * Left ventricular end-diastolic pressure of 13. * Mild inferior wall hypokinesis. * Ischemic cardiomyopathy. * Moderate coronary artery disease involving the left circumflex system. * Hemostasis established using a 6-Tanzanian MynxGrip. RECOMMENDATIONS: The patient is to remain on dual antiplatelet therapy as well as statin therapy. Lifestyle modification factors have been strongly advised. The patient will be kept overnight for anticipated discharge in the morning. Edith JOHNSON D.O. DR: VINICIUS TID: [id number] RECEIPT: [id number] MTDD
[2022-05-25 20:19] VITALS: BP 152/79
[2022-05-25] MEDS ORDERED: XANAX PO SCH (20:30)
[2022-05-25] MEDS ORDERED: HUMULIN R SQ ONE (21:00)
[2022-05-25] MEDS ORDERED: NORCO 10MG PO SCH (21:00)
[2022-05-25] MEDS ORDERED: LIPITOR PO SCH (21:00)
[2022-05-25] MEDS: NEURONTIN PO SCH (21:01)
[2022-05-25] MEDS: LOPRESSER PO SCH (21:01)
[2022-05-25] MEDS: FLEXERIL PO SCH (21:04)
[2022-05-26 00:01] VITALS: BP 111/62
[2022-05-26 04:00] VITALS: BP 129/76
[2022-05-26] MEDS ORDERED: SYNTHROID ONE ×2 (05:45→05:46)
[2022-05-26] MEDS ORDERED: NORCO 10MG PO SCH (06:00)
[2022-05-26] MEDS ORDERED: LEVOTHYROXINE SODIUM PO SCH (06:30)
[2022-05-26] MEDS ORDERED: HUMULIN R SQ SCH (07:30)
[2022-05-26] MEDS: FLEXERIL PO SCH (08:19)
[2022-05-26] MEDS: LOPRESSER PO SCH (08:19)
[2022-05-26] MEDS: NEURONTIN PO SCH (08:19)
[2022-05-26 08:34] VITALS: BP 158/81
[2022-05-26] MEDS ORDERED: PLAVIX PO SCH (09:00)
[2022-05-26] MEDS ORDERED: CYMBALTA PO SCH (09:00)
[2022-05-26] MEDS ORDERED: ASPIRIN EC PO SCH (09:00)
[2022-05-26] MEDS ORDERED: ATOR40TA PO (09:10)
--- NOTE | 2022-05-26 09:12 | PRM.DC ---
Discharge Summary Date of Discharge: May 26, 2022 Time of Request to Discharge: 09:11 Hospital Course This is a 51-year-old female, who was evaluated in the outpatient setting, where she underwent cardiac ischemic workup that was noted to be abnormal. She was then set up for left heart catheterization after informed consents were obtained. LEFT HEART CATHETERIZATION REVEALED : * Severe stenosis (80%) of the right posterolateral artery, status post successful percutaneous coronary intervention with an Eulalio Adams 2.25 x 34 mm drug-eluting stent. * Severe stenosis (90%) of the ostial right posterior descending artery, status post successful percutaneous coronary intervention with an Eulalio Adams 2.25 x 15 mm drug-eluting stent. * Selective coronary angiography. * Left ventriculography. * Hemostasis established using a 6-St Helenian MynxGrip. General: Alert, Oriented X3, Cooperative, No acute distress HEENT: Atraumatic, EOMI Neck: Supple Lungs: Clear to auscultation, Normal air movement Heart: Regular rate, Normal S1, Normal S2 Abdomen: Normal bowel sounds, Soft Extremities: Other (bilateral AKA ; R groin dressing intact ) Skin: No rashes, No breakdown, No significant lesion Neuro: Normal speech Psych/Mental Status: Mental status NL, Mood NL Scheduled Alprazolam (Xanax), 1 MG PO DAILY24, (Reported) Aspirin (Aspirin Ec), 1 TAB PO DAILY, (Reported) Atorvastatin 40MG (Lipitor 40MG), 80 MG PO HS Clopidogrel Bisulfate (Plavix), 1 TAB PO DAILY, (Reported) Cyclobenzaprine Hcl (Flexeril), 10 MG PO TID, (Reported) Duloxetine Hcl (Cymbalta), 1 CAP PO DAILY, (Reported) Gabapentin (Neurontin), 1 CAP PO TID, (Reported) Hydrocodone Bit/Acetaminophen ([place] 10-325), 1 TAB PO QID, (Reported) Levothyroxine Sodium (Levothyroxine Sodium), 1 TAB PO DAILY, (Reported) Metoprolol Tartrate 25MG (Lopresser 25MG), 1 TAB PO BID, (Reported) Ropinirole Hcl (Requip), 20 MG PO BID, (Reported) Discontinued Medications Canagliflozin (Invokana), 100 MG PO DAILY, (Reported) Discontinued Reason: No Longer Taking Docusate Sodium (Colace), 1 CAP PO BID, (Reported) Discontinued Reason: No Longer Taking Insulin Degludec (Tresiba Flextouch U-100), 44 UNIT SQ HS, (Reported) Discontinued Reason: No Longer Taking Levofloxacin (Levaquin), 500 MG PO DAILY Discontinued Reason: No Longer Taking Liraglutide (Victoza 3-Vincent), 1.2 MG SQ DAILY, (Reported) Discontinued Reason: No Longer Taking Lubiprostone (Amitiza), 1 CAP PO BID, (Reported) Discontinued Reason: No Longer Taking Meloxicam (Mobic), 1 TAB PO DAILY, (Reported) Discontinued Reason: No Longer Taking Olmesartan/Hydrochlorothiazide (Benicar Hct 40-25 Mg Tablet), 1 EACH PO DAILY, (Reported) Discontinued Reason: No Longer Taking Pregabalin (Lyrica), 1 CAP PO BID, (Reported) Discontinued Reason: No Longer Taking Sepsis Evaluation @ Discharge 05/26/22 07:38 Constitutional: denies chills, denies fever, denies weakness EENTM: denies blurred vision, denies ear pain, denies nose congestion Respiratory: denies cough, denies orthopnea, denies shortness of breath, denies SOB with exertion, denies SOB at rest Cardiovascular: denies chest pain, denies lightheadedness, denies palpitations ABD/GI (ROS): denies abdomen distended, denies abdominal pain Genitourinary: denies dysuria Musculoskeletal: no symptoms reported Skin: no symptoms reported Psychiatric/Neurological: no symptoms reported Endocrine: no symptoms reported Hematologic/Lymphatic: no symptoms reported Stroke Discharge Summary Discharge on Anti-Thrombotics: Yes Discharge on Antcoagulation Th: Yes Discharge on Statins: Yes Plan Assessment Patient will be discharged on dual antiplatelet therapy as well as statin therapy. Lifestyle modification factors have been strongly advised. She has been instructed to follow up with me in 2 weeks. Discharge Date: May 26, 2022 Discharge Disposition: RANULFO Dacosta APRN, NP May 26, 2022 09:12 ANN-MARIE YEH DO May 26, 2022 12:52
[2022-05-26 11:05] VITALS: BP 158/81
--- NOTE | 2022-05-26 11:13 | NUR ---
DISCHARGE PATIENT BEING DISCHARGED HOME AT THIS TIME IN STABLE CONDITION. PATIENT DENIES ANY ADDITIONAL RESOURCES. PHYSICAL PRESCRIPTIONS SENT WITH PATIENT. EDUCATED PATIENT ON S/S OF HEMATOMA. RELINQUISHED CARE FOR PATIENT.
--- NOTE | 2022-05-26 11:51 | NUR ---
DISCHARGE PLAN - F/U APPT DR BEST - 06/07/22@3PM PER REVIEW OF PATIENT'S CHART. PATIENT CURRENTLY LIVES@HOME WITH SPOUSE IN [place]. PATIENT HAS A WHEELCHAIR, GLUCOMETER AND HOME O2. PATIENT SEE'S DR BEST FOR PCP AND HAS [facility] IN PLACE. CM MADE PATIENT A F/U APPT BEFORE PATIENT WAS DISCHARGED AND ENTERED IT IN PATIENT'S VISIT REPORT FOR NOTIFICATION. CM NOTIFIED CARLOS HALL, IDENTITY MANAGEMENT CONSULTANT NURSE OF F/U APPT TIME AND PATIENT CURRENTLY ON SERVICES OF [facility]. CM CONTACTED [facility] AND SPOKE WITH OJSÉ AND REQUESTED HOME HEALTH DX. [facility] WILL LOOK IN RECORDS AND LET CM KNOW. CM INFORMED OF PATIENT'S ADMIT TO [facility] FOR CARDIAC CATH AND DISCHARGED HOME TODAY WITH F/U APPT WITH DR BEST ON 06/07/22@3PM. CM FAXED PATIENT'S CLINICALS TO [facility]@[phone]. FAX CONFIRMATION CONFIRMED COMPLETE. [facility] DR BEST, REYNOLD MASTERS, JOELLE CLARK, AND LINDEN MATTSON AND INFORMED OF PATIENT'S CARDIAC CATH WITH F/U APPT WITH DR BEST AND RESUMPTION OF [facility]IA [facility] EMAIL.
[2022-05-27] MEDS ORDERED: SYNTHROID PO SCH ×2 (06:30)
== END 2022-05-26 11:11 | disposition home health service (06) ==
LOC: SDC 09:55 → MS 14:26
PROVIDERS: ADMIT Internal Medicine Interventional Cardiology; ATTEND Internal Medicine Interventional Cardiology
DX: I25.10 Atherosclerotic heart disease of native coronary artery without angina pectoris (principal); I25.5 Ischemic cardiomyopathy; Z79.82 Long term (current) use of aspirin; Z89.611 Acquired absence of right leg above knee; Z89.612 Acquired absence of left leg above knee; Z79.899 Other long term (current) drug therapy
CPT/HCPCS: 80053; 85025; 36415; 85610; 85730; 93005; 93458; 82948 ×2; 99152; G0378 ×3; J2270; J7030; J1644 ×2; C1894 ×2; C1887; C1769 ×2; J0360; J2060; J2001; J2250; J3010; C9601; C9600; Q9967; J8499

== ENCOUNTER 2022-06-23 08:58 | Emergency (ER) | payer MEDICARE, MEDICAID ==
[~2022-06-23] VITALS: Ht 162.6 cm; Wt 113.4 kg
[~2022-06-23 08:58] MED LIST changes: +ATOR40TA PO; +GABA300C PO; +METO25TA4 PO; -NS 1000ML 1,000 ML IV SCH
--- NOTE | 2022-06-23 09:01 | NUR ---
ARRIVAL PT ARRIVED VIA WHEELCHAIR TO ED 3 WITH C/O LEFR FACE DROOPING AND NUMBNESS. PT STATES THIS HAS BEEN ON AND OFF FOR 3-4 WEEKS. VITALS TAKEN AND [address] NOTIFIED.
--- NOTE | 2022-06-23 09:10 | NUR ---
CODE STROKE CODE STROKE CALLED OVER HEAD
[2022-06-23 09:11] VITALS: BP 152/68
[2022-06-23 09:31] LABS: BASOPHIL # 0.1 10^3/uL (0.0-0.1); BASOPHIL % 0.8 % (0.0-0.2); EOSINOPHIL # 0.1 10^3/uL (0.0-0.2); EOSINOPHIL % 1.7 % (0.0-5.0); LYMPHOCYTES # 1.71 10^3/uL1 (1.0-4.8); LYMPHOCYTES % 24.1 % (24.0-44.0); MONOCYTES # 0.6 10^3/uL (0.3-0.8); MONOCYTES % 7.7 % (5.0-12.0); NEUTROPHIL # 4.6 10^3/uL (1.8-7.7); NEUTROPHILS % 64.3 % (41.0-85.0); PLATELET COUNT 255 10^3/uL (150-400); RED CELL DISTRIBUTION WIDTH 13.7 % (11.5-14.5)
[2022-06-23 09:46] LABS: CARBON DIOXIDE 30.7 mmol/L (20.0-32)
--- NOTE | 2022-06-23 09:57 | DIREP ---
PROCEDURE:CT HEAD OR BRAIN W/O CONTRAST COMPARISON:[facility], CT, CT HEAD BRAIN W/O CONTRAST, 04/22/2016, 07:18 PM. INDICATIONS:Left facial droop TECHNIQUE:CT images were created without intravenous contrast. FINDINGS: VENTRICLES:The ventricles are normal in size and configuration. CEREBRUM:Normal cerebral morphology with appropriate smith white matter differentiation. CEREBELLUM:Negative. BRAINSTEM:Negative. BASAL CISTERNS:Negative. HEMORRHAGE (Vol L*W*H*.52):No MASS LESION:No ACUTE INFARCT:No SKULL:Hyperostosis frontalis interna incidentally noted. SINUSES:Normal. OTHER:None CONCLUSION:No acute abnormalities. Dictated by: Renaldo Whitaker M.D. on 06/23/2022 at 09:54 AM
--- NOTE | 2022-06-23 10:28 | ER.PDOC ---
General Chief Complaint: Stroke Symptoms Stated Complaint: STROKE SYMPTOMS Time seen by MD: 09:24 Source: patient Exam Limitations: no limitations History of Present Illness Initial Comments Left facial droop for 1 month. 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 She saw her PCP today, who sent her to the ED to have a CT head done. No speech abnormality. No swallowing difficulty. No extremity weakness. Patient is a double amputee. Severity: moderate New Weakness: (L) facial Usually: orientedx3 Allergies: Coded Allergies: cefazolin (Verified Allergy, Severe, Anaphylaxis Shock, 05/25/22) Home Meds Active Scripts Atorvastatin 40MG (LIPITOR 40MG) 40 Mg Tablet, 80 MG PO HS for 30 Days, #30 TAB Prov:RANULFO TREVIZO APRN CORNICE UPHOLSTERER 05/26/22 Reported Medications Metoprolol Tartrate 25MG (LOPRESSER 25MG) 25 Mg Tablet, 1 TAB PO BID, #180 TAB 1 Refill 05/25/22 Gabapentin (NEURONTIN) 300 Mg Capsule, 1 CAP PO TID, #90 CAP 3 Refills 05/25/22 Clopidogrel Bisulfate (PLAVIX) 75 Mg Tablet, 1 TAB PO DAILY, #30 TAB 4 Refills 12/27/16 Aspirin (ASPIRIN EC) 81 Mg Tablet.dr, 1 TAB PO DAILY, #30 TAB 4 Refills 12/27/16 Levothyroxine Sodium (LEVOTHYROXINE SODIUM) 175 Mcg Tablet, 1 TAB PO DAILY, #30 TAB 5 Refills 12/21/16 Hydrocodone Bit/Acetaminophen (NORCO 10-325) 1 Each Tablet, 1 TAB PO QID, #120 TAB 12/21/16 Duloxetine Hcl (CYMBALTA) 60 Mg Capsule.dr, 1 CAP PO DAILY, #90 CAP 3 Refills 12/21/16 Ropinirole Hcl (REQUIP) 5 Mg Tablet, 20 MG PO BID 05/08/13 Cyclobenzaprine Hcl (FLEXERIL) 5 Mg Tablet, 10 MG PO TID 05/08/13 Alprazolam (XANAX) 1 Mg Tablet, 1 MG PO DAILY24 05/08/13 Past Medical History Medical History: diabetes, hypertension Surgical History: cardiac cath, cholecystectomy, colon, , gastric bypass, stent Social History Alcohol Use: none Drug Use: none Review of Systems Constitutional: no symptoms reported Respiratory: no symptoms reported Cardiovascular: no symptoms reported Gastrointestinal: no symptoms reported Psychiatric/Neurological: see HPI All Other Systems: Reviewed and Negative Physical Exam General Appearance: alert, no distress HEENT: no apparent trauma, EOM's intact, no nystagmus, PERRL, ENT inspection nml, pharynx nml, airway intact, oral exam nml Neuro/Psych: oriented x3, nml speech/cognition, nml mood/affect Cranial Nerves: facial palsy (left), forehead involved Peripheral Exam: motor nml, sensation nml, reflexes nml Neck: supple, non-tender, no carotid bruit Respiratory: no resp distress, breath sounds nml CVS: reg rate & rhythm, heart sounds nml Abdomen: non-tender, no organomegaly, no distention Skin: color nml, no rash, warm/dry Extremities: non-tender, nml ROM, no pedal edema Results/Orders Results/Orders Orders - SURESH BELCHER MD Cbc With Auto Diff (06/23/22 09:19) Comprehensive Metabolic Panel (06/23/22 09:19) Ct Head Wo Contrast (06/23/22 09:19) Vital Signs Date Time Temp Pulse Resp B/P (MAP) Pulse Ox O2 Delivery O2 Flow Rate FiO2 06/23/22 09:11 98.0 86 18 95 06/23/22 09:11 98.0 86 18 152/68 (96) 95 Room Air* 0 21 06/23/22 09:11 98.0 86 18 05/26/22 08:19 70 Laboratory Tests Test 06/23/22 09:16 06/23/22 09:19 POC Glucose 199 (70 - 110) H White Blood Count 7.1 10^3/uL (4.5-11.0) Red Blood Count 4.10 10^6/uL (4.00-5.20) Hemoglobin 12.3 g/dL (12.0-15.0) Hematocrit 40.4 % (36.0-46.0) Mean Corpuscular Volume 98.5 fL (78-100) Mean Corpuscular Hemoglobin 30.0 pg (26-34) Mean Corpuscular Hemoglobin Concent 30.4 g/dL (33-36.5) L Red Cell Distribution Width 13.7 % (11.5-14.5) Platelet Count 255 10^3/uL (150-400) Mean Platelet Volume 9.9 fL (7.8-11.0) Neutrophils (%) (Auto) 64.3 % (41.0-85.0) Lymphocytes (%) (Auto) 24.1 % (24.0-44.0) Monocytes (%) (Auto) 7.7 % (5.0-12.0) Neutrophils # (Auto) 4.6 10^3/uL (1.8-7.7) Lymphocytes # (Auto) 1.71 10^3/uL1 (1.0-4.8) Monocytes # (Auto) 0.6 10^3/uL (0.3-0.8) Absolute Immature Granulocyte (auto 0.10 10^3 u/L (0-2) Absolute Eosinophils (auto) 0.1 10^3/uL (0.0-0.2) Immature Granulocytes % 1.40 % (0.00-0.50) H Eosinophils % 1.7 % (0.0-5.0) Basophils % 0.8 % (0.0-0.2) H Basophils # 0.1 10^3/uL (0.0-0.1) Sodium Level 138 mmol/L (132-145) Potassium Level 4.8 mmol/L (3.6-5.2) Chloride Level 103.0 mmol/L (96-109) Carbon Dioxide Level 30.7 mmol/L (20.0-32) Anion Gap 9.1 Blood Urea Nitrogen 30 mg/dL (7-18) H Creatinine 1.28 mg/dL (0.59-1.40) Estimated GFR () 53.6 (>/=60) Est GFR (CKD-EPI)(Non-Afr Iranian) 44.3 (>/=60) BUN/Creatinine Ratio 23.0 Glucose Level 208 mg/dL (70-110) H Calcium Level 7.7 mg/dL (8.4-10.5) L Total Bilirubin 0.3 mg/dL (0.2-1.0) Aspartate Amino Transferase (AST) 25 U/L (0-35) Alanine Aminotransferase (ALT) 20 U/L (12-78) Alkaline Phosphatase 98 U/L (50-136) Total Protein 6.5 g/dL (6.4-8.2) Albumin 2.9 g/dL (3.4-5.0) L Globulin 3.6 Albumin/Globulin Ratio 0.[address] head is normal CBC and chemistry are unremarkable Discussed with Dr. Pérez who sent the patient to the ED. Patient discharged home. ER DEPART Departure Time of Disposition: 10:27 Disposition: 01 HOME / SELF CARE / HOMELESS Impression: Primary Impression: Delgado's palsy Condition: Stable Referrals: LISA PÉREZ MD (PCP) PRIMARY CARE PROVIDER Additional Instructions: Follow-up with your neurologist next week Return to ED if worsening or concerns Duration or Time Spent with Pa: 30 min SURESH BELCHER MD Jun 23, 2022 10:28
--- NOTE | 2022-06-23 11:28 | PCM.EKG ---
[facility] Test Date: 2022-06-23 Test Time: 09:19:48 Pat Name: MARIELA OHARA Department: Room: Gender: F Payment Rep: federica : [id number] Requested By: SURESH BELCHER Order Number: [id number] Reading MD: Suresh BELCHER Measurements Intervals [place] Rate: 80 P: 4 VT: 202 QRS: 12 QRSD: 111 T: 49 QT: 398 QTc: 460 Interpretive Statements Sinus rhythm Borderline prolonged VT interval Incomplete left bundle branch block Low voltage, precordial leads Baseline wander in lead(s) I,III,aVR,aVL,V3,V4 Compared to ECG 05/23/2022 15:27:55 Left bundle-branch block now present Low QRS voltage now present Left ventricular hypertrophy no longer present Incomplete right bundle-branch block no longer present Electronically Signed On 06-24-2022 19:18:12 CANNERY TENDER ENGINEER by Suresh BELCHER Please click the below link to view image of tracing.
== END 2022-06-23 10:35 | disposition home or self-care (01) ==
LOC: ER 08:58
DX: G51.0 Bell's palsy (principal); E11.9 Type 2 diabetes mellitus without complications; I10 Essential (primary) hypertension; Z88.1 Allergy status to other antibiotic agents; Z90.49 Acquired absence of other specified parts of digestive tract; Z98.84 Bariatric surgery status
CPT/HCPCS: 36415; 70450; 80053; 82948; 85025; 93005; 99285

== ENCOUNTER → 2022-09-05 | Outpatient (CLI) | payer MEDICARE, MEDICAID ==
--- NOTE | 2022-09-05 18:46 | DIREP ---
PROCEDURE:US DOPPLER CAROTID BILATERAL COMPARISON:None. INDICATIONS:R29.810 FACIAL WEAKNESS TECHNIQUE:Sonographic evaluation of carotid arteries was performed together with grayscale, color-flow, and spectral analysis. FINDINGS: PEAK FLOW VELOCITIES (cm/sec) RIGHT CCA: PROX:77.7 cm/s MID:72.5 cm/s DIST:75.1 cm/s RIGHT ICA: PROX:61.6 cm/s MID:68.8 cm/s DIST:85.1 cm/s RIGHT ECA:86.8 cm/s RIGHT ICA/CCA:1.13 RIGHT VERTEBRAL:53.4 cm/s; Antegrade IMAGES:There is no significant plaque. LEFT CCA: PROX:90.1 cm/s MID:93.9 cm/s DIST:66.2 cm/s LEFT ICA: PROX:69.9 cm/s MID:64.4 cm/s DIST:109.2 cm/s LEFT ECA:100.2 cm/s LEFT ICA/CCA:1.65 LEFT VERTEBRAL:67.7 cm/s; Antegrade IMAGES:There is no significant plaque. OTHER: Lymph nodes with fatty marc are incidentally noted within the bilateral neck. The largest within the right neck is present in level III measuring 1.3 x 0.4 x 0.9 cm. The largest within the left neck is present in level II measuring 1.9 x 1.0 x 0.9 cm. CONCLUSION:No elevated Doppler velocities to suggest focal flow-limiting stenosis. Diameter Stenosis (%)ICA Peak Systolic Velocity (cm/s)ICA/CCA RatioNormal<125<2.0<50<125<[id number]>2-470 to near occlusion>230>4J Ultrasound Med 2005; 24:[id number] Dictated by: TRAVIS Physician on 09/05/2022 at 05:10 PM ac
== END | disposition home or self-care (01) ==
LOC: RAD 11:51
PROVIDERS: ATTEND Internal Medicine
DX: R29.810 Facial weakness (principal)
CPT/HCPCS: 93880

== ENCOUNTER → 2023-04-20 | Outpatient (CLI) | payer MEDICARE, MEDICAID | END | disposition home or self-care (01) | LOC: RAD 10:28 | PROVIDERS: ATTEND Nurse Practitioner Family | DX: I08.1 Rheumatic disorders of both mitral and tricuspid valves (principal); I10 Essential (primary) hypertension; Z98.61 Coronary angioplasty status | CPT/HCPCS: 93306 ==